=== PATIENT | female | born 1970 | race African-American/Black ===

== ENCOUNTER 2016-04-13 22:17 | Emergency (ER) | payer OTHER, MEDICAID ==
[~2016-04-13] VITALS: Ht 175.3 cm; Wt 76.2 kg
[~2016-04-13 22:17] MED LIST: ACETAMINOPHEN-1 EAC1 ORAL; AMPICILLIN250 MG PO; AUGMENTIN 500-1 EACH ORAL; BENADRYL12.5 M1 PO; CEPHALEXIN500 MG ORAL; CIPROFLOXACIN500 M2 ORAL; CORTISPORIN EAR10 ML RIGHT EAR; CYCLOBENZAPRINE10 MG ORAL; IBUPROFEN800 MG ORAL; KEFLEX500 MG ORAL; LITHIUM CARBON150 MG ORAL; MACROBID100 MG ORAL; NORCO 5-325 TA1 EACH ORAL; NORCO 5-325 TA1 EACH PO; PERCOCET 5-3251 EACH ORAL; PHENAZOPYRIDIN200 MG ORAL; TEMAZEPAM7.5 MG ORAL; TRAMADOL HCL50 MG ORAL; ZANTAC150 MG ORAL; ZOFRAN4 MG ORAL
[2016-04-13] MEDS ORDERED: Tylenol #3 tab (300mg/30mg) ORAL ONE (22:45)
[2016-04-13 22:52] VITALS: BP 115/84
[2016-04-13] MEDS ORDERED: ACETAMINOPHEN-1 EAC1 ORAL (22:57)
[2016-04-13] MEDS ORDERED: AMOXICILLIN500 MG ORAL (22:57)
--- NOTE | 2016-04-14 02:29 | Emergency Room Report ---
History of Present Illness General Chief Complaint: Skin Rash/Abscess Source: Patient Present Illness HPI 45-year-old female presents ED complaining of tooth pain. Symptoms started yesterday. Pain is sharp. 10 out of 10. Nonradiating. No other aggravating relieving factors. Patient states "there is an abscess". Patient admits to poor dentition. Denies any fevers or chills. Denies any other associated symptoms Allergies: Coded Allergies: No Known Allergies (Unverified , 09/01/12) Patient History Past Medical History: none Past Surgical History: none Pertinent Family History: none Social History: Denies: alcohol use, drug use, smoking Last Menstrual Period: Mar Now: No Immunizations: UTD Reviewed Nursing Documentation: PMH: Agreed, PSxH: Agreed Nursing Documentation-PMH Past Medical History: No Stated History Review of Systems All Other Systems: negative except mentioned in HPI Physical Exam Vital Signs Date Time Temp Pulse Resp B/P Pulse Ox O2 Delivery O2 Flow Rate FiO2 04/13/16 22:21 98.4 96 16 120/87 97 04/13/16 22:52 Room Air Sp02 EP Interpretation: reviewed, normal General Appearance: no apparent distress, alert, GCS 15, non-toxic Head: normocephalic Eyes: bilateral eye PERRL, bilateral eye normal inspection ENT: other - poor dentition. inflammation/erythema surrounding 1st and 2nd premolar on left. no fluctuance Neck: full range of motion, supple, no meningismus, supple/symm/no masses Respiratory: normal inspection Cardiovascular #1: normal inspection Gastrointestinal: normal inspection Rectal: deferred Genitourinary: no CVA tenderness Musculoskeletal: normal inspection Neurologic: alert, oriented x3, responsive, motor strength/tone normal, sensory intact, speech normal Psychiatric: normal inspection Skin: normal inspection Lymphatic: normal inspection Medical Decision Making Diagnostic Impression: Primary Impression: Dental abscess ER Course 45-year-old female presents ED complaining of tooth pain. Cracked tooth, dental abscess, cavity Patient placed on stretcher. After initial history, physical exam reveals a young female in mild distress. There is erythema and induration surrounding the first and second premolar on the left side. No fluctuance. No discharge. Likely dental abscess. We will treat with pain medications and antibiotics Given Tylenol #3 and amoxicillin in ED Diagnosis- dental abscess Stable and discharged to home prescription for Tylenol #3 and amoxicillin. Instructed to see dentist as a walk-in this week. Return to ED if symptoms recur or worse Last Vital Signs Date Time Temp Pulse Resp B/P Pulse Ox O2 Delivery O2 Flow Rate FiO2 04/13/16 23:04 98.3 92 15 115/84 98 Room Air Status: improved Disposition: HOME, SELF-CARE Condition: Stable Scripts Acetaminophen With Codeine (T#3) (TYLENOL #3 TAB*) Y Tab 1 TAB ORAL Q8H Y for For Pain, #20 TAB Prov: JASBIR RAMÍREZ M.D. 04/13/16 Amoxicillin* (AMOXIL*) 500 Mg Capsule 500 MG ORAL THREE TIMES A DAY, #21 CAP Prov: JASBIR RAMÍREZ M.D. 04/13/16 Referrals: [facility],REFERRING (PCP) Patient Instructions: Dental Abscess, [id number] JASBIR RAMÍREZ M.D. Apr 14, 2016 02:29
== END 2016-04-13 23:05 | disposition home or self-care (01) ==
LOC: EMR 22:40
DX: K04.7 Periapical abscess without sinus (principal)
CPT/HCPCS: 99284